=== PATIENT | female | born 1940 | race Caucasian/White ===

== ENCOUNTER 2021-04-29 07:47 | Day surgery (SDC) | payer MEDICARE, OTHER ==
[~2021-04-29] VITALS: Ht 160.1 cm; Wt 71.9 kg
[2021-04-29] VITALS (12 sets, daily range): BP systolic 109–170; BP diastolic 65–94; PULSE 71–84; TEMP 97.7
[2021-04-29 08:26] LABS: HEMOGLOBIN 12.3 g/dl (12.5-16.0); MEAN CELL VOLUME 94 fl (80.0-100.0); MEAN CORPUSCULAR HEMOGLOBIN 32 pg (27-31); MEAN CORPUSCULAR HGB CONC 34 g/dl (33.0-37.0); MEAN PLATELET VOLUME 8.8 fl (7.4-10.4); PLATELET COUNT 284 K/mm3 (130-400); RED BLOOD COUNT 3.84 M/mm3 (4.10-5.30); REDCELL DISTRIBUTION WIDTH-CV 12.9 % (11.5-14.5)
[2021-04-29 08:33] LABS: HEMATOCRIT 36.1 % (37.0-47.0); PROTHROMBIN TIME 11.4 SECONDS (9.7-12.8)
[2021-04-29 08:36] LABS: PARTIAL THROMBOPLASTIN TIME 29.1 SECONDS (26.0-37.0)
[2021-04-29 08:44] LABS: CALCIUM 9.3 mg/dL (8.4-10.2); CREATININE, serum 0.81 mg/dL (0.57-1.11); POTASSIUM 4.2 mmol/L (3.5-4.5)
[2021-04-29] MEDS ORDERED: SYNTHROID0.05 MG/TA PO (08:45)
[2021-04-29] MEDS ORDERED: NEURONTIN400 MG/CAP PO (09:06)
[2021-04-29] MEDS ORDERED: VITAMIN E1000 U/CAP PO (09:07)
[2021-04-29] MEDS ORDERED: IMDUR 30MG30 MG/TAB PO (09:08)
[2021-04-29] MEDS ORDERED: SINGULAIR 110 MG/TAB PO (09:09)
[2021-04-29] MEDS ORDERED: LEXAPRO 10MG10 MG PO (09:09)
[2021-04-29] MEDS ORDERED: XIIDRA1 EACH OP (09:10)
[2021-04-29] MEDS ORDERED: VITAMIN D31000 I1 PO (09:10)
[2021-04-29] MEDS ORDERED: TURMERIC500 MG PO (09:11)
[2021-04-29] MEDS ORDERED: B-12 500 MCG PO (09:12)
[2021-04-29] MEDS ORDERED: CLEOCIN HC150 MG/CAP PO (09:13)
[2021-04-29] MEDS ORDERED: BENADRYL25 M2 PO (09:13)
[2021-04-29] MEDS ORDERED: TYLENOL 325MG325 MG PO (09:13)
--- NOTE | 2021-04-29 09:16 | NUR ---
SEE MERGE DOCUMENTATION FOR MEDICATION ADMINISTRATION TIMES AND INTRA/POST PROCEDURE SEDATION ASSESSMENTS.
--- NOTE | 2021-04-29 12:47 | NUR ---
Right radial access has observed bleeding at site,Air reinstilled back into band.Will continue to monitor.
--- NOTE | 2021-04-29 15:15 | NUR ---
aLL AIR RELEASED FROM BAND IN 2-3 ML INCRIMENTS.NO BLEEDING OBSERVED AT SITE.wRAPPED IN GAUZE AND COBAN.
--- NOTE | 2021-04-29 15:30 | NUR ---
Discharge instructions given to pt.Pt verbalizes understanding.INT removed,catheter tip intact.Pt escorted out via wheelchair by this nurse.
== END 2021-04-29 16:55 ==
LOC: COL.CAR 07:47
PROVIDERS: Internal Medicine Cardiovascular Disease
DX: I25.10 Atherosclerotic heart disease of native coronary artery without angina pectoris (principal); I10 Essential (primary) hypertension; R06.00 Dyspnea, unspecified; E78.5 Hyperlipidemia, unspecified; E03.9 Hypothyroidism, unspecified; Z79.890 Hormone replacement therapy; F41.9 Anxiety disorder, unspecified; G62.9 Polyneuropathy, unspecified
CPT/HCPCS: J1644; J2250; J3010; J7030; Q9967